=== PATIENT | male | born 1980 ===

== ENCOUNTER 2025-01-22 10:45 | Outpatient (AMB) | payer OTHER, SELFPAY ==
--- NOTE | 2025-01-22 10:44 | MHC.OFFWIV ---
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 Pt states it is very itchy. 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 Rash due to suspected contact dermatitis: - Developed rash after working outdoors, mowing on before the visit. - Exposure to debris from mowing potentially containing contact irritants. - Rash primarily located around the neck. - Has had previous poison maximo sensitivity, but this reaction is more severe than prior episodes. - Has used cortisone cream and Benadryl, with no significant improvement. - Rash persists despite using soap to dissolve irritant oils since Tuesday. - Rash is extremely itchy, worst around the collar area. 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 Problem List - Contact dermatitis (suspected) Patient Instructions - Start taking prednisone as prescribed. - keep skin clean and dry try not to scratch Review of Systems - General: No fever no chills - Neurological: No headaches no dizziness - Ear nose throat: No sore throat no hearing difficulty no ear pain - Cardiovascular: No syncope, no chest pain, no palpitations - Gastrointestinal: No nausea vomiting or diarrhea Physical Exam General: No acute distress HEENT: No acute findings Neck: Rash present, primarily around the collar, extremely itchy Respiratory system: Able to talk in full sentences, no audible wheeze Gastrointestinal: No pain Extremities: No new findings ADAPTED PHYSICAL EDUCATION SPECIALIST: Alert awake oriented x3 motor sensory intact Skin: Rash present, mostly around the neck and back mostly macular PFSH Social History Patient Tobacco Use Status: Never used Tobacco Use of substances other than those prescribed or required for medical reasons: No service: No Current occupational status: employed Physical Exam Vital Signs: Last Vital Signs Temp 98.0 F 01/22/25 10:47 Pulse 78 01/22/25 10:47 BP 142/90 H 01/22/25 10:47 Pulse Ox 96 01/22/25 10:47 Oxygen Delivery Method Room Air 01/22/25 10:47 BMI result Body Mass Index 50.8 Assessment & Plan Assessment & Plan (1) Pruritic erythematous rash: Code(s): L29.89 - Other pruritus Plan History of Present Illness The patient is a 44 year old male presenting with a rash due to suspected contact dermatitis. Rash due to suspected contact dermatitis: - Developed rash after working outdoors, mowing on before the visit. - Exposure to debris from mowing potentially containing contact irritants. - Rash primarily located around the neck. - Has had previous poison maximo sensitivity, but this reaction is more severe than prior episodes. - Has used cortisone cream and Benadryl, with no significant improvement. - Rash persists despite using soap to dissolve irritant oils since Tuesday. - Rash is extremely itchy, worst around the collar area. 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 Problem List - Contact dermatitis (suspected) Patient Instructions - Start taking prednisone as prescribed. - keep skin clean and dry try not to scratch Medications: New methylprednisolone (Medrol (Robby)) PO PER PKG DIR 21 ea 0RF 6 days Coding Level of Care Code New Pt Level 3 (09714) Diagnoses Pruritic erythematous rash L29.89
[2025-01-22 10:47] VITALS: BP 142/90; PULSE 78; TEMP 36.7; O2SAT 96; BMI 50.8
--- OUTSIDE RECORDS SUMMARY | 2025-01-22 12:44 | XMS_ITS | Clinical Summary ---
Author Organization [facility] Address [address] [place] [address] Phone Care Team Providers Care Party Planner Name Role Phone Jeffrey Roman MD Primary Care Provider [phone] Allergies No known active allergies Medications tamsulosin (FLOMAX) 0.4 mg Cap Take 1 capsule (0.4 mg total) by mouth daily. 30 capsule 1 Active morphine (MSIR) 15 MG tablet Take 0.5 tablets (7.5 mg total) by mouth every 4 (four) hours as needed for pain (specific location in comments). Partial fill ok 5 tablet 1 Active ondansetron (ZOFRAN-ODT) 4 MG disintegrating tablet Take 1 tablet (4 mg total) by mouth every 8 (eight) hours as needed for nausea. 15 tablet 1 Active Active Problems No known active problems Immunizations Immunization Administration Dates Next Due COVID-19 (Pre-03/07) Pfizer Vaccine, mRNA, PF ,09/06/2020 Social History Tobacco Use Types Packs/Day Years Used Date Smoking Tobacco: Never Smokeless Tobacco: Never Alcohol Use Standard Drinks/Week Comments Yes 0 (1 standard drink = 0.6 oz pur e alcohol) Education Answer Date Recorded Are you interested in more education? Not on florentino e 09/10/2022 Are you concerned about learning? Not on file 09/10/2022 No 09/10/2022 No 09/10/2022 Digital Access Answer Date Recorded No 10/08/2022 No 10/08/2022 No 10/08/2022 Reliable internet access at home? Not on file 10/08/2022 Device with a working camera? Not on file Sex and Gender Information Value Date Recorded Sex Assigned at Male 08/29/2020 4:37 PM EDT Legal Sex Male 9:22 PM EDT Gender Identity Male 08/29/2020 4:37 PM EDT Sexual Orientation Straight 08/29/2020 4: 37 PM EDT Last Filed Vital Signs Vital Sign Reading Time Taken Comments Blood Pressure 178/105 02/11/2021 3:34 AM EDT Pulse 60 02/11/2021 3:34 AM EDT Temperature 36.6 C (97.9 F) 02/11/2021 3:34 AM EDT Respiratory Rate 20 02/11/2021 3:34 AM EDT Oxygen Saturation 93% 02/11/2021 3:34 AM EDT Inhaled Oxygen Concentration - - Weight 167.8 kg (370 lb) 02/15/2020 9:00 AM EDT Height 188 cm (6' 2 ) 02/15/2020 9:00 AM EDT Body Mass Index 47.51 02/15/2020 9:00 AM EDT Plan of Treatment Health Maintenance Due Date Last Done Comments LIPID PANEL 1980 DEPRESSION SCREENING 1992 HEPATITIS C SCREENING 1998 HIV ONE-TIME SCREENING (18-65 YEARS) 1998 Adult Td,Tdap Booster 04/27/2023 04/27/2013, 012 INFLUENZA VACCINE (#1) 2024 , 07/16/2016, 02/24/2015, Additional history exists COVID-19 VACCINE ( season) 2025 09/27/2020, 09/06/2020 SMOKING STATUS SCREENING (Once After 26 Yrs) Completed 02/15/2020 HEPATITIS A VACCINES Aged Out No long er eligible based on patient's age to complete this topic HIB VACCINES Aged Out No longer eligi ble based on patient's age to complete this topic MENINGOCOCCAL VACCINES (ACWY) Aged Out No longer eligible based on patient's age to complete this topic MENINGOCOCCAL VACCINES (B) Aged Out N o longer eligible based on patient's age to complete this topic PNEUMOCOCCAL VACCINES (0-49 years) Aged Out No longer eligible based on patient's age to complete this topic Medical Devices Not on file Insurance [address] [place], [place] [address] [place] [place] [address] [place] [place] [address] [place] [address] [place] [address] [facility] [address] [place] [address] [facility] Care Teams Party Planner Relationship Specialty Start Date End Date Jeffrey Roman MD [address] [place] [id number] PCP - General Internal Medicine 08/15/18 Additional Source Comments The information contained in this document represents components of the legal health record. It is not the complete legal health record.[facility]
== END 2025-01-22 11:51 | disposition home or self-care (01) ==
PROVIDERS: Visit Provider Internal Medicine
DX: L29.89 Other pruritus (principal)